=== PATIENT | female | born 1970 | race African-American/Black ===

== ENCOUNTER 2020-08-18 02:55 | Emergency (ER) | payer MEDICARE, OTHER ==
[~2020-08-18 02:55] MED LIST: Calcium Chloride 1 GM/10 ML Abboject SYRINGE ONE; EPINEPHrine 1 MG/10 ML Abboject SYRINGE ONE; Sodium Bicarb 50 MEQ/50 ML Abboject 8.4% SYRINGE ONE
== END 2020-08-18 03:01 | disposition expired ==
LOC: EDSEX 02:55 → ERS 02:55 → EDBD 02:55 → ERS 03:01
DX: I46.9 Cardiac arrest, cause unspecified (principal)
CPT/HCPCS: 92950; 96374; 96375; J0171